=== PATIENT | male | born 1970 | race Caucasian/White ===

== ENCOUNTER 2018-10-22 21:50 | Emergency (ER) | payer BC ==
--- NOTE | 2018-10-22 22:24 | EDM.PDOC ---
ED HPI GENERAL MEDICAL PROBLEM - General Chief Complaint: Skin Complaint Stated Complaint: FISH HOOK Time Seen by Provider: 10/22/18 22:15 Source of Information: Reports: Patient History Limitations: Reports: No Limitations - History of Present Illness INITIAL COMMENTS - FREE TEXT/NARRATIVE: 48 yo male presents with a fish hook in his finger. Is not sure about tetanus status. Here for removal. Onset: Today Onset Date: 10/22/18 Duration: Minutes:, Constant Location: Reports: Upper Extremity, Left Quality: Reports: Dull Severity: Mild Improves with: Reports: Rest Worsens with: Reports: Other (moving hook) Context: Reports: Trauma Associated Symptoms: Reports: No Other Symptoms Treatments RESEARCH RECRUITER: Reports: Other (see below) (none) - Related Data Allergies Allergy/AdvReac Type Severity Reaction Status Date / Time codeine Allergy Vomiting Verified 10/22/18 22:16 fentanyl Allergy Vomiting Verified 10/22/18 22:16 lorazepam [From Ativan] Allergy Hallucinati Verified 10/22/18 22:16 ons morphine Allergy Vomiting Verified 10/22/18 22:16 Home Meds: Home Meds Colestipol HCl 3 tab PO WITHDINNER 10/22/18 [History] Ferrous Sulfate [Iron] 325 mg PO DAILY 10/22/18 [History] InFLIXimab [Remicade] ASDIRECTED 10/22/18 [History] Omeprazole 1 tab PO DAILY 10/22/18 [History] ED ROS GENERAL - Review of Systems Review Of Systems: See Below Constitutional: Reports: No Symptoms Musculoskeletal: Reports: No Symptoms Skin: Reports: Wound (puncture L index) Neurological: Reports: No Symptoms ED EXAM, SKIN/RASH Exam: See Below Exam Limited By: No Limitations General Appearance: Alert, WD/WN, No Apparent Distress Extremities: Other (single carlota of a fish hook imbedded in L index finger, no bleeding.) Neurological: Alert, Oriented, CN II-XII Intact, Normal Cognition, No Motor/ Sensory Deficits Psychiatric: Normal Affect, Normal Mood Skin: Warm, Dry, Normal Color, No Rash, Wound/Incision (puncture wound L index from fish hook.) Location, Skin: Upper Extremity, Left Characteristics: Other (puncture) Associated features: Tenderness Course - Vital Signs Text/Narrative:: Anesth locally with 1 ml of 1% lidocaine. Prep with alcohol. Hook pushed through and removed as carlota had already partially come through the other side of his finger. Last Recorded V/S: Last Vital Signs Temp 36.3 C 10/22/18 22:12 Pulse 76 10/22/18 22:12 Resp 16 10/22/18 22:12 BP 148/103 H 10/22/18 22:12 Pulse Ox 97 10/22/18 22:12 - Orders/Labs/Meds Orders: Active Orders 24 hr Category Date Time Status Vaccines to be Administered [RC] PER UNIT ROUTINE Care 10/22/18 22:48 Ordered Diphth,Pertuss(Acell),Tet Vac [Adacel] Med 10/22/18 22:48 Once 0.5 ml IM .ONCE ONE Meds: Medications Discontinued Medications Generic Name Dose Route Start Last Admin Trade Name Natty PRN Reason Stop Dose Admin Bacitracin 1 dose 10/22/18 22:41 10/22/18 22:48 Bacitracin Oint 1 Gm TOP 10/22/18 22:42 1 dose ONETIME ONE Administration Lidocaine HCl 5 ml 10/22/18 22:18 10/22/18 22:48 Xylocaine-Mpf 1% INJECT 10/22/18 22:19 5 ml ONETIME ONE Administration Departure - Departure Time of Disposition: 22:55 Disposition: Home, Self-Care 01 Condition: Good Clinical Impression: Fish hook injury of finger of left hand Qualifiers: Encounter type: initial encounter Qualified Code(s): S69.92XA - Unspecified injury of left wrist, hand and finger(s), initial encounter - Discharge Information *PRESCRIPTION DRUG MONITORING PROGRAM REVIEWED*: No *COPY OF PRESCRIPTION DRUG MONITORING REPORT IN PATIENT KATHERINE: No Referrals: PCP,None [Primary Care Provider] - Forms: ED Department Discharge Additional Instructions: Clean wound twice daily with soap and water. Keep wound clean for 3 days. Recheck for signs of infection. Keep antibiotic ointment on wound with each dressing change. - My Orders Last 24 Hours: My Active Orders 10/22/18 22:48 Vaccines to be Administered [RC] PER UNIT ROUTINE Diphth,Pertuss(Acell),Tet Vac [Adacel] 0.5 ml IM .ONCE ONE - Assessment/Plan Last 24 Hours: My Active Orders 10/22/18 22:48 Vaccines to be Administered [RC] PER UNIT ROUTINE Diphth,Pertuss(Acell),Tet Vac [Adacel] 0.5 ml IM .ONCE ONE
[2018-10-22] MEDS ORDERED: Bacitracin Oint 1 GM U/D Packet TOP ONE (22:41)
[2018-10-22] MEDS ORDERED: Diphtheria,Pertussis(Acell),Tetanus Vaccine 0.5 ML SDV IM ONE (22:48)
== END 2018-10-22 23:06 | disposition home or self-care (01) ==
LOC: JP.ED 21:50
DX: S60.451A Superficial foreign body of left index finger, initial encounter (principal); W45.8XXA Other foreign body or object entering through skin, initial encounter; Z79.899 Other long term (current) drug therapy; Z88.5 Allergy status to narcotic agent; Z88.8 Allergy status to other drugs, medicaments and biological substances; Z23 Encounter for immunization
CPT/HCPCS: 90471; 90715; 99282; J2001